=== PATIENT | male | born 1950 | race Caucasian/White ===

== ENCOUNTER → 2016-09-06 | Outpatient (CLI) | payer MEDICARE, OTHER ==
[~2016-09-06] MED LIST: ADVIL200 MG PO; DYAZIDE 25 MG-31 CAP PO; LIPITOR 10MG10 MG PO
== END ==
LOC: MHCPAIN 09:46
DX: G89.29 Other chronic pain (principal); M47.817 Spondylosis without myelopathy or radiculopathy, lumbosacral region; M54.16 Radiculopathy, lumbar region; M53.3 Sacrococcygeal disorders, not elsewhere classified; M96.1 Postlaminectomy syndrome, not elsewhere classified
CPT/HCPCS: G0463

== ENCOUNTER 2016-09-29 14:45 | Inpatient (IN) | payer MEDICARE, OTHER ==
[~2016-09-29] VITALS: Ht 188 cm; Wt 99.6 kg
[2016-11-09] VITALS (11 sets, daily range): BP systolic 102–1058; BP diastolic 62–84; PULSE 44–65; TEMP 97.7–99.6
[2016-11-09] MEDS ORDERED: LIPITOR 10MG10 MG PO (09:57)
[2016-11-09] MEDS ORDERED: ADVIL200 MG PO (09:58)
[2016-11-09] MEDS ORDERED: DYAZIDE 25 MG-31 CAP PO (09:58)
[2016-11-10 00:27] VITALS: BP 127/65; PULSE 56; TEMP 98.5
[2016-11-10 04:00] VITALS: BP 129/75; PULSE 60; TEMP 98.5
[2016-11-10 07:16] LABS: HEMOGLOBIN 12.2 g/dl (13.5-18.0)
[2016-11-10 07:18] LABS: HEMATOCRIT 35.2 % (42.0-52.0)
[2016-11-10 07:49] VITALS: BP 140/75; PULSE 50; TEMP 97.8
[2016-11-10 12:57] VITALS: BP 130/86; PULSE 75; TEMP 97.9
[2016-11-10 16:21] VITALS: BP 153/72; PULSE 65
[2016-11-10 20:00] VITALS: BP 145/75; PULSE 74; TEMP 98.2
[2016-11-11 00:56] VITALS: BP 127/75; PULSE 68; TEMP 98.5
[2016-11-11 05:43] VITALS: BP 139/71; PULSE 74; TEMP 98.5
[2016-11-11 06:48] LABS: HEMATOCRIT 33.3 % (42.0-52.0); HEMOGLOBIN 11.6 g/dl (13.5-18.0)
[2016-11-11 07:27] VITALS: BP 126/67; PULSE 78; TEMP 98.4
[2016-11-11 11:49] VITALS: BP 91/76; PULSE 85; TEMP 98.5
== END 2016-11-11 12:15 | disposition home or self-care (01) | DRG 470 ==
LOC: SURG 11-09 09:29 → JCC 11-09 09:45 → SURG 11-11 12:15
PROVIDERS: Orthopaedic Surgery
PROC: 0SRC0J9 Replacement of Right Knee Joint with Synthetic Substitute, Cemented, Open Approach (ICD-10-PCS; principal; 2016-11-09 11:15)
DX: M17.11 Unilateral primary osteoarthritis, right knee (principal); I10 Essential (primary) hypertension; Z87.891 Personal history of nicotine dependence
CPT/HCPCS: A4315; A9284; C1713; C1776; J0690; J2250; J2405; J2704; J7120

== ENCOUNTER → 2016-10-29 | Outpatient (CLI) | payer MEDICARE ==
[2016-10-29 09:43] LABS: HIV 1/2 Antibodies Non-Reactive; HIV-1p24 Antigen Non-Reactive
== END ==
LOC: COL.LAB 08:34
PROVIDERS: Orthopaedic Surgery
DX: Z01.812 Encounter for preprocedural laboratory examination (principal)

== ENCOUNTER → 2017-11-29 | Outpatient (CLI) | payer MEDICARE | LOC: COL.RAD 09:18 | DX: M16.12 Unilateral primary osteoarthritis, left hip (principal) | CPT/HCPCS: J3301; Q9967 ==